=== PATIENT | female | born 1935 | race Hispanic/Latino ===

== ENCOUNTER 2017-08-20 07:37 | Emergency (ER) | payer MEDICARE ==
[2017-08-20 08:56] LABS: #Lymphocytes 0.9 thou/uL (1.20-3.40); #Monocytes 0.6 thou/uL (0.11-0.59); #Neutrophils 10.3 thou/uL (1.40-6.50); %Basophils 0.2 % (0.0-1.0); %Eosinophils 0.3 % (0.0-10.0); %Lymphocytes 7.5 % (21.0-51.0); %Monocytes 4.9 % (0.0-10.0); %Neutrophils 87.1 % (42.0-75.0); Hemoglobin 10.2 g/dL (12.0-16.0); Mean Corpuscular HGB CONC 32.9 g/dL (32.0-36.0); Mean Corpuscular Hemoglobin 31.3 pg (27.0-31.0); Mean Corpuscular Volume 95.3 fl (81.0-99.0); Mean Platelet Volume 7.1 fL (7.4-10.4); Platelet Count 464 thou/uL (130-400); Red Blood Cell (RBC) Count 3.24 mill/uL (4.20-5.40); White Blood Cell (WBC) Count 11.9 thou/uL (4.8-10.8)
[2017-08-20 09:14] LABS: Anion Gap 12 mmol/L (10-20); BUN (Urea Nitrogen) 21 mg/dL (9.8-20.1); Calc. Creatinine Clearance 0 mL/min (70-130); Calcium 9.3 mg/dL (7.8-10.44); Carbon Dioxide 24 mmol/L (23-31); Chloride 101 mmol/L (98-107); Estimated GFR-MDRD 56; Glucose 225 mg/dL (83-110); Potassium 4.3 mmol/L (3.5-5.1); Sodium 133 mmol/L (136-145)
--- NOTE | 2017-08-20 09:19 | RAD ---
CHEST 1 VIEW: HISTORY: Cough. FINDINGS: Cardiac silhouette is magnified by projection and upper limits of normal. Pulmonary vasculature is u nremarkable. Mediastinum is midline with aortic calcification. There is no lobar consolidation or e vidence of pneumothorax. IMPRESSION: Borderline cardiomegaly and pulmonary vascular congestion. No florid edema is evident. POS: [facility]
[2017-08-20 09:20] LABS: Troponin I Less than 0.010 ng/mL (< 0.028)
[2017-08-20 09:34] LABS: Bilirubin Negative (Negative); Blood, Urine Negative (Negative); Clarity CLEAR (Clear); Glucose, Urine (Dipstick) 250 mg/dL (Negative); Leukocyte Trace (Negative); Nitrite Negative (Negative); Protein, Urine (Dipstick) Negative (Neg-Trace); Specific Gravity, Urine 1.021 (1.002-1.036)
[2017-08-20 09:37] LABS: Bacteria/HPF None Seen HPF (None Seen); Hyaline Casts/LPF 0-3 HYALINE CAST LPF (0-3 Hyaline); Pathc Cast-AUWi Flag 0.27 (0-2.49); RBC/HPF 0-3 HPF (0-3); Squamous Epithelial 0-3 HPF (0-3); WBC/HPF 0-3 HPF (0-3)
[2017-08-20] MEDS ORDERED: Methocarbamol 1 GM in Sodium Chloride 0.9% 100 ML IVPB SCH (09:45)
== END 2017-08-20 12:15 | disposition home or self-care (01) ==
LOC: ERS 07:37
DX: M54.2 Cervicalgia (principal); E11.9 Type 2 diabetes mellitus without complications; E78.5 Hyperlipidemia, unspecified; M19.90 Unspecified osteoarthritis, unspecified site
CPT/HCPCS: 36415; 71045; 80048; 81003; 81015; 82553; 84484; 85025; 87086; 93005; 96365; J2800; J7050

== ENCOUNTER 2018-06-30 08:18 | Outpatient (CLI) | payer MEDICARE | END 2018-06-30 08:19 | disposition home or self-care (01) | LOC: BICMAMMO 08:18 | PROVIDERS: ATTEND Internal Medicine | DX: Z12.31 Encounter for screening mammogram for malignant neoplasm of breast (principal); R92.1 Mammographic calcification found on diagnostic imaging of breast | CPT/HCPCS: 77063; 77067 ==

== ENCOUNTER 2019-02-07 15:08 | Outpatient (CLI) | payer MEDICARE ==
--- NOTE | 2019-02-07 16:39 | BD ---
Exam: DEXA Bone Density 02/07/19 COMPARISON: 07/10/07. HISTORY: 83-year-old postmenopausal female for screening. FINDINGS: Lumbar Spine: BMD (g/cm2) T-SCORE L1 1.114 1.1 L2 1.050 0.2 L3 1.076 -0.1 L4 1.063 0.0 L1-L4 1.078 0.3 Left Femoral Neck: 0.469 -3.4 Total Proximal Femur: 0.783 -1.3 Impression: Osteoporosis. POS: [facility]
== END 2019-02-07 15:09 | disposition home or self-care (01) ==
LOC: BICMAMMO 15:08
PROVIDERS: ATTEND Internal Medicine Rheumatology
DX: M81.0 Age-related osteoporosis without current pathological fracture (principal)
CPT/HCPCS: 77080

== ENCOUNTER 2019-07-10 11:25 | Outpatient (CLI) | payer MEDICARE ==
--- NOTE | 2019-07-10 13:07 | MMO ---
Bilateral MAMMO Bilat Screen [facility]. CLINICAL HISTORY: Patient is 83 years old and is seen for screening. The patient has no family history of breast cancer. The patient has no personal history of cancer. VIEWS: The views performed were: bilateral craniocaudal; bilateral craniocaudal with tomosynthesis; and bilateral mediolateral oblique with tomosynthesis. FILMS COMPARED: The present examination has been compared to prior imaging studies performed at [facility] on 06/12/2015, 06/17/2016, 06/28/2017 and 06/30/2018. This study has been interpreted with the assistance of computer-aided detection. MAMMOGRAM FINDINGS: There are scattered fibroglandular densities. There are stable benign appearing calcifications seen in both breasts. There are also vascular calcifications. There are no suspicious masses, suspicious calcifications, or new areas of architectural distortion. IMPRESSION: THERE IS NO MAMMOGRAPHIC EVIDENCE OF MALIGNANCY. A ROUTINE FOLLOW-UP MAMMOGRAM IN 1 YEAR IS RECOMMENDED. THE RESULTS OF THIS EXAM WERE SENT TO THE PATIENT. ACR BI-RADS Category 2 - Benign finding MAMMOGRAPHY NOTE: 1. A negative mammogram report should not delay a biopsy if a dominant of clinically suspicious mass is present. 2. Approximately 10% to 15% of breast cancers are not detected by mammography. 3. Adenosis and dense breasts may obscure an underlying neoplasm. Reported by: CHRISTI YEN MD Electonically Signed: [id number]
== END 2019-07-10 11:26 | disposition home or self-care (01) ==
LOC: BICMAMMO 11:25
PROVIDERS: ATTEND Internal Medicine
DX: Z12.31 Encounter for screening mammogram for malignant neoplasm of breast (principal)
CPT/HCPCS: 77063; 77067

== ENCOUNTER 2020-04-07 01:35 | Emergency (ER) | payer MEDICARE, OTHER ==
[2020-04-07 11:43] LABS: SARS-CoV-2 MS2 Positive; SARS-CoV-2 N Gene Negative; SARS-CoV-2 S Gene Negative; SARS-CoV-2 by NAA Not Detected (NotDetected); SARS-CoV-2 orf1ab Negative
== END 2020-04-07 02:44 | disposition home or self-care (01) ==
LOC: ERS 01:35
DX: R05 Cough (principal); Z20.828 Contact with and (suspected) exposure to other viral communicable diseases; E11.9 Type 2 diabetes mellitus without complications; E78.5 Hyperlipidemia, unspecified; E78.00 Pure hypercholesterolemia, unspecified; Z79.899 Other long term (current) drug therapy; Z79.84 Long term (current) use of oral hypoglycemic drugs
CPT/HCPCS: 99283; U0003; 87635

== ENCOUNTER 2020-04-30 19:49 | Emergency (ER) | payer MEDICARE ==
[2020-04-30] MEDS ORDERED: Dexamethasone 10 MG/ML VIAL ONE (20:41)
[2020-04-30 20:54] LABS: #Basophils 0.1 thou/uL (0.0-0.2); #Eosinphils 0.3 thou/uL (0.0-0.7); #Lymphocytes 0.5 thou/uL (1.20-3.40); #Monocytes 0.5 thou/uL (0.11-0.59); #Neutrophils 7.6 thou/uL (1.40-6.50); %Basophils 0.6 % (0.0-1.0); %Eosinophils 2.9 % (0.0-10.0); %Lymphocytes 5.6 % (21.0-51.0); %Monocytes 5.4 % (0.0-10.0); %Neutrophils 85.5 % (42.0-75.0); Hemoglobin 11.3 g/dL (12.0-16.0); Mean Corpuscular HGB CONC 33.3 g/dL (32.0-36.0); Mean Corpuscular Volume 96.3 fL (78.0-98.0); Mean Platelet Volume 7.4 fL (7.4-10.4); Platelet Count 440 thou/uL (130-400); RBC Distribution Width 12.8 % (11.5-14.5); Red Blood Cell (RBC) Count 3.51 mill/uL (4.20-5.40); White Blood Cell (WBC) Count 8.9 thou/uL (4.8-10.8)
[2020-04-30 21:14] LABS: ALT (SGPT) 15 U/L (8-55); AST (SGOT) 23 U/L (5-34); Albumin 3.8 g/dL (3.4-4.8); Alkaline Phosphatase 27 U/L (40-110); Anion Gap 15 mmol/L (10-20); BUN (Urea Nitrogen) 26 mg/dL (9.8-20.1); Bilirubin, Total 0.3 mg/dL (0.2-1.2); Calc. Creatinine Clearance 0 mL/min (70-130); Calcium 9.2 mg/dL (7.8-10.44); Carbon Dioxide 18 mmol/L (23-31); Chloride 107 mmol/L (98-107); Estimated GFR-MDRD 32; Globulin 3.6 g/dL (2.4-3.5); Glucose 158 mg/dL (83-110); Potassium 5.3 mmol/L (3.5-5.1); Protein, Total 7.4 g/dL (6.0-8.3); Sodium 135 mmol/L (136-145)
[2020-04-30] MEDS ORDERED: metroNIDAZOLE 500 MG/100 ML BAG ONE (21:39)
[2020-04-30] MEDS ORDERED: Ciprofloxacin 500 MG TAB ONE (21:39)
[2020-04-30] MEDS ORDERED: metroNIDAZOLE 250 MG TAB ONE (21:45)
== END 2020-04-30 22:17 | disposition home or self-care (01) ==
LOC: ERS 19:49
DX: E86.0 Dehydration (principal); R19.7 Diarrhea, unspecified; L03.116 Cellulitis of left lower limb; E11.9 Type 2 diabetes mellitus without complications; E78.5 Hyperlipidemia, unspecified; E78.00 Pure hypercholesterolemia, unspecified; M19.90 Unspecified osteoarthritis, unspecified site; Z79.84 Long term (current) use of oral hypoglycemic drugs; Z79.899 Other long term (current) drug therapy
CPT/HCPCS: 80053; 85025; 96361; 96374; J1100

== ENCOUNTER 2020-05-14 13:01 | Inpatient (IN) | payer MEDICARE, OTHER ==
[2020-05-14 14:48] LABS: #Basophils 0.1 thou/uL (0.0-0.2); #Eosinphils 0.2 thou/uL (0.0-0.7); #Lymphocytes 1.6 thou/uL (1.20-3.40); #Monocytes 0.5 thou/uL (0.11-0.59); #Neutrophils 7.5 thou/uL (1.40-6.50); %Basophils 0.5 % (0.0-1.0); %Eosinophils 1.7 % (0.0-10.0); %Monocytes 4.8 % (0.0-10.0); Hemoglobin 9.6 g/dL (12.0-16.0); Mean Corpuscular HGB CONC 32.8 g/dL (32.0-36.0); Mean Corpuscular Volume 97.6 fL (78.0-98.0); Mean Platelet Volume 7.1 fL (7.4-10.4); Platelet Count 555 thou/uL (130-400); RBC Distribution Width 12.5 % (11.5-14.5); Red Blood Cell (RBC) Count 2.99 mill/uL (4.20-5.40); White Blood Cell (WBC) Count 9.7 thou/uL (4.8-10.8)
[2020-05-14 15:12] LABS: ALT (SGPT) 9 U/L (8-55); AST (SGOT) 20 U/L (5-34); Albumin 3.2 g/dL (3.4-4.8); Alkaline Phosphatase 27 U/L (40-110); Anion Gap 14 mmol/L (10-20); BUN (Urea Nitrogen) 45 mg/dL (9.8-20.1); Bilirubin, Total 0.3 mg/dL (0.2-1.2); Calc. Creatinine Clearance 0 mL/min (70-130); Calcium 7.7 mg/dL (7.8-10.44); Carbon Dioxide 16 mmol/L (23-31); Chloride 112 mmol/L (98-107); Estimated GFR-MDRD 17; Globulin 3.7 g/dL (2.4-3.5); Glucose 112 mg/dL (83-110); Magnesium 1.6 mg/dL (1.6-2.6); Potassium 4.6 mmol/L (3.5-5.1); Protein, Total 6.9 g/dL (6.0-8.3); Sodium 137 mmol/L (136-145)
[2020-05-14 15:30] LABS: Bilirubin Negative (Negative); Blood, Urine Negative (Negative); Clarity Clear (Clear); Glucose, Urine (Dipstick) 70 mg/dL (Negative); Ketone, Urine Negative (Negative); Leukocyte 250 Leu/uL (Negative); Nitrite Negative (Negative); Protein, Urine (Dipstick) 20 mg/dL (Neg-Trace); RBC/HPF 0-3 HPF (0-3); Specific Gravity, Urine 1.014 (1.002-1.036); Urobilinogen Normal mg/dL (Less than 2)
[2020-05-14 15:32] LABS: Bacteria/HPF 1+ HPF (None Seen)
--- NOTE | 2020-05-14 15:47 | PDOC.HHP ---
Hospitalist HPI - History of Present Illness Worsening renal function History of Present Illness: This is an 84-year-old female with a history of diabetes mellitus was transferred here by her PCP on account of worsening renal function. Patient notes she had followed up with a PCP for routine visit and labs were done. She was called later and informed that she has come to the ED for further evaluation due to poor renal function. She is generally asymptomatic. She notes for the past couple of months having had some abdominal bloating on account of eating some foods. She also notes having been on some probiotics which have been causing her to have diarrhea for the past couple of weeks. She had 1 tablet this morning with 1 big bowel movement prior to visiting the clinic. She does not know the name of the medication. She has also had a long history of polyuria which has been attributed to her diabetes. She does not take NSAIDs. She takes Tylenol for headache. She also has ongoing nocturia. She denies any fever, chills, cough chest pain or shortness of breath. At presentation her vitals were BP 122/70, pulse 90/min, respiration 19, temperature 97 saturation 99 on room air. Labs showed UA with leukocytes to 50, WBC 7-10, low nitrite. Creatinine was elevated at 2.72 from a baseline of 1.54 on 04/30/2020a month ago. She had a mild anemia of 9.6 from a baseline of 11.3 months ago. Nephrology was consulted on account of worsening renal function Hospitalist team consulted for admission. Hospitalist ROS - Review of Systems Constitutional: denies: fever, chills, sweats Respiratory: denies: cough, shortness of breath, hemoptysis, SOB with excertion Cardiovascular: denies: chest pain, palpitations, orthopnea, paroxysmal noc. dyspnea Gastrointestinal: reports: other. denies: nausea, vomiting, abdominal pain Genitourinary: denies: dysuria, frequency (Abdominal discomfort with some foods), incontinence Musculoskeletal: denies: neck pain Neurological: denies: weakness, numbness, incoordination - Medication Medications: Glyburide 5 mg p.o. 3 times daily Raloxifene 60 mg a Lisinopril 5 mg daily Metformin thousand milligrams twice daily Pravastatin 40 mg daily Tramadol 25 mg twice daily Fenofibrate 145 p.o. every afternoon Aspirin 325 twice daily Humalog 2 units moderate sliding scale Tramadol thousand milligrams every 6 as needed Drug allergies: Ceftriaxone Hospitalist History - Past Medical History Endocrine: reports: Diabetes - Past Surgical History Past Surgical History: reports: Total Knee Replacement - Family History Other Family History: Diabetes mellitus - Social History Smoking Status: Never smoker Alcohol: reports: None Drugs: reports: none - Exam General Appearance: awake alert General - other findings: No acute distress. Eye: PERRL, anicteric sclera Heart: RRR, no murmur, no gallops, normal peripheral pulses Respiratory: no wheezes, no rales, no ronchi, no tachypnea Gastrointestinal: soft, non-tender, non-distended, normal bowel sounds, no palpable masses Extremities: no cyanosis Neurological: cranial nerve grossly intact, no weakness Psychiatric: normal behavior, A&O x 3 Hospitalist Results - Labs Result Diagrams: 05/14/20 14:37 05/14/20 14:37 Lab results: WBC 9.7 thou/uL (4.8-10.8) 05/14/20 14:37 Hgb 9.6 g/dL (12.0-16.0) L 05/14/20 14:37 Hct 29.2 % (36.0-47.0) L 05/14/20 14:37 MCV 97.6 fL (78.0-98.0) 05/14/20 14:37 Plt Count 555 thou/uL (130-400) H 05/14/20 14:37 Neutrophils % 77.0 % (42.0-75.0) H 05/14/20 14:37 Sodium 137 mmol/L (136-145) 05/14/20 14:37 Potassium 4.6 mmol/L (3.5-5.1) 05/14/20 14:37 Chloride 112 mmol/L (98-107) H 05/14/20 14:37 Carbon Dioxide 16 mmol/L (23-31) L 05/14/20 14:37 BUN 45 mg/dL (9.8-20.1) H 05/14/20 14:37 Creatinine 2.72 mg/dL (0.6-1.1) H 05/14/20 14:37 Glucose 112 mg/dL (83-110) H 05/14/20 14:37 Calcium 7.7 mg/dL (7.8-10.44) L 05/14/20 14:37 Total Bilirubin 0.3 mg/dL (0.2-1.2) 05/14/20 14:37 AST 20 U/L (5-34) 05/14/20 14:37 ALT 9 U/L (8-55) 05/14/20 14:37 Alkaline Phosphatase 27 U/L (40-110) L 05/14/20 14:37 Serum Total Protein 6.9 g/dL (6.0-8.3) 05/14/20 14:37 Albumin 3.2 g/dL (3.4-4.8) L 05/14/20 14:37 Urine Ketones Negative mg/dL (Negative) 05/14/20 15:11 Urine Blood Negative (Negative) 05/14/20 15:11 Urine Nitrite Negative (Negative) 05/14/20 15:11 Ur Leukocyte Esterase 250 Fili/uL (Negative) A 05/14/20 15:11 Urine RBC 0-3 HPF (0-3) 05/14/20 15:11 Urine WBC 7-10 HPF (0-3) A 05/14/20 15:11 Ur Squamous Epith Cells 4-6 HPF (0-3) A 05/14/20 15:11 Urine Bacteria 1+ HPF (None Seen) A 05/14/20 15:11 Hospitalist H&P A/P - Plan Plan: 84-year-old female with diabetes mellitus transferred on account of worsening r enal function. ARACELI on CKD Creatinine bumped from 1.5-2.7 today. Unclear etiologypossibly prerenal, to rule out renal disease BUN is 45BUN/creatinine ratio is on 20 Will give IV fluid bolus to assess for prerenal failure. Start antibiotics for potential UTI. Kidney ultrasound Possible UTI Started levofloxacinwe will continue Allergy to ceftriaxone Follow-up cultures Normocytic anemia Likely secondary to CKD Iron studies ordered. Monitor hemoglobin Diabetes mellitus Sliding scale Monitor glucose Hypertension Hold lisinopril Monitor blood pressure
[2020-05-14] MEDS ORDERED: Acetaminophen 325 MG TAB PO PRN (16:43)
[2020-05-14] MEDS ORDERED: Dextrose 5% in Water 1,000 ML IV PRN (16:47)
[2020-05-14] MEDS ORDERED: Dextrose 50% Abboject 50 ML SYRINGE SLOW IVP PRN (16:47)
[2020-05-14] MEDS ORDERED: Sodium Chloride 0.9% 500 ML IV SCH (17:00)
[2020-05-14 17:54] LABS: Iron 71 ug/dL (50-170); Iron Binding Capacity, Total 330 mcg/dL (265-497)
[2020-05-14] MEDS ORDERED: Sodium Bicarbonate 150 MEQ in Dextrose 5% in Water 1,000 ML IV SCH (18:45)
[2020-05-14 19:12] LABS: Creatinine, Urine 93.63 mg/dL (47-110)
[2020-05-14 19:48] VITALS: BMI 28.3
[2020-05-14] MEDS ORDERED: Amlodipine 5 MG TAB PO SCH (20:15)
[2020-05-14] MEDS: HumaLOG 300 UNITS/3 ML VIAL SC PRN (21:51)
--- NOTE | 2020-05-14 22:48 | CON ---
DATE OF CONSULTATION: 05/14/2020 SERVICE: Nephrology. REASON FOR CONSULTATION: Elevated creatinine. REQUESTING PHYSICIAN: Heri Sumner MD. HISTORY OF PRESENT ILLNESS: An 84-year-old female with past medical history significant for hypertension and diabetes who was referred to the hospital by PCP due to increasing creatinine levels. The patient reported abdominal bloating, but denied overt discomfort, nausea, vomiting, chest pain, shortness of breath, leg swelling, change in bowel habit, fever, or chills. The patient also denied NSAID use. Of note, the patient had creatinine of 1.54 on April 30, 2020, and on repeat earlier today it was found to be 2.89 at the PCP's office, hence referred to the emergency room for further evaluation and treatment. The patient had creatinine of 0.96 in 2018 and that seems to be her baseline. PAST MEDICAL HISTORY: 1. Hypertension. 2. Diabetes mellitus. 3. Hyperlipidemia. PAST SURGICAL HISTORY: Total knee replacement. FAMILY HISTORY: Significant for diabetes mellitus. SOCIAL HISTORY: The patient is a never smoker. Denied alcohol or recreational drug use. Lives with . ALLERGIES: REPORTED ALLERGIC REACTION TO CEFTRIAXONE. MEDICATIONS: Prior to hospital medications: 1. Glyburide 5 mg b.i.d. with meals. 2. Lisinopril 5 mg p.o. daily. 3. Metformin 1000 mg p.o. b.i.d. 4. Pravastatin 40 mg p.o. daily at bedtime. 5. Tricor 145 mg p.o. daily. 6. Vitamin D 5000 units daily. 7. Aspirin 325 mg p.o. daily. 8. Tramadol p.r.n. 9. Sliding scale insulin. REVIEW OF SYSTEMS: A 12-point review of system performed was negative other than pertinent positives and negatives included in the history of present illness. PHYSICAL EXAMINATION: VITAL SIGNS: Temperature 97.6, pulse 85, respiratory rate 16, SpO2 of 98% on room air, blood pressure is 163/76. GENERAL: Elderly female, in no obvious distress. Afebrile. Anicteric. Acyanotic. HEENT: Normocephalic, atraumatic. Oral mucosa is moist. NECK: Supple with no JVD. CARDIOVASCULAR: Regular rhythm and rate with normal. heart sounds 1 and 2. RESPIRATORY: Good air entry bilaterally with no obvious crackle or rhonchi or use of accessory muscles. GI: Full, soft, nontender, nondistended with normal bowel sounds. EXTREMITIES: Grossly normal looking, atraumatic with no edema or erythema. DUPLIGRAPH OPERATOR: Conscious, alert, oriented x3 with appropriate mental status. Cranial nerves 2 through 12 are grossly intact. DIAGNOSTIC DATA: CBC today showed WBC count of 9.7, hemoglobin of 9.6, MCV of 97.6, platelet of 555. Chemistry showed sodium 137, potassium 4.6, chloride 112, CO2 of 16, BUN 45, creatinine 2.72, glucose 112, calcium 7.7, magnesium 1.6, total bilirubin 0.3, AST 20, ALT 9, alkaline phosphatase 27, total protein 6.9, albumin 3.2. ASSESSMENT: 1. Acute kidney injury; etiology is unclear. Prerenal etiology is a possibility. Progression of chronic kidney disease is another differential, but acute worsening in few days seems acute pathology. The patient denied NSAID use. She however reported use of some probiotic, which causes some frequent loose stool, but has not used the probiotics recently. 2. Metabolic acidosis. 3. Chronic kidney disease with baseline creatinine around 1. 4. Hypocalcemia. PLAN: 1. We will get urinalysis and urine electrolytes. 2. We will also get a vitamin D level. 3. We will hold lisinopril for now. 4. We will start amlodipine for BP control. 5. We will also get renal ultrasound. 6. Avoid nephrotoxic agent. 7. We will also start the patient on sodium bicarbonate infusion. 8. Further treatment to follow depending on hospital course and review of other diagnostic test. 9. Many thanks for involving us in the care of this patient. We will follow along with you. Job ID: [id number]
[2020-05-15 06:22] LABS: #Basophils 0.1 thou/uL (0.0-0.2); #Eosinphils 0.2 thou/uL (0.0-0.7); #Lymphocytes 1.3 thou/uL (1.20-3.40); #Monocytes 0.4 thou/uL (0.11-0.59); #Neutrophils 6.3 thou/uL (1.40-6.50); %Eosinophils 2.3 % (0.0-10.0); %Monocytes 5.1 % (0.0-10.0); %Neutrophils 75.6 % (42.0-75.0); Hemoglobin 8.9 g/dL (12.0-16.0); Mean Corpuscular HGB CONC 33.8 g/dL (32.0-36.0); Mean Corpuscular Hemoglobin 32.4 pg (27.0-31.0); Mean Corpuscular Volume 95.9 fL (78.0-98.0); Mean Platelet Volume 7.1 fL (7.4-10.4); Platelet Count 515 thou/uL (130-400); RBC Distribution Width 12.6 % (11.5-14.5); Red Blood Cell (RBC) Count 2.76 mill/uL (4.20-5.40); White Blood Cell (WBC) Count 8.4 thou/uL (4.8-10.8)
[2020-05-15 06:45] LABS: Anion Gap 10 mmol/L (10-20); BUN (Urea Nitrogen) 41 mg/dL (9.8-20.1); Calc. Creatinine Clearance 17 mL/min (70-130); Calcium 7.2 mg/dL (7.8-10.44); Carbon Dioxide 21 mmol/L (23-31); Chloride 109 mmol/L (98-107); Estimated GFR-MDRD 18; Glucose 106 mg/dL (83-110); Potassium 4.4 mmol/L (3.5-5.1); Sodium 136 mmol/L (136-145)
--- NOTE | 2020-05-15 07:50 | ULT ---
Exam: Bilateral renal ultrasound HISTORY: Acute kidney insufficiency COMPARISON: None FINDINGS: Right kidney: Normal cortical echotexture. No hydronephrosis. Right kidney measurements: 5.0 x 11.8 x 4.4 cm. Left kidney: Normal cortical echotexture. No hydronephrosis. 1.0 x 1.0 x 0.9 cm anechoic focus likely representing a intraparenchymal cyst. Left kidney measurements 11.4 x 5.0 x 4.7 cm. Urinary bladder: Normal mucosa. Right ureteral jet is appreciated. Left ureteral jet is not identifie d. Bladder volume is 108 mL. IMPRESSION: No hydronephrosis.
[2020-05-15] MEDS ORDERED: Ergocalciferol 1.25 MG(50,000 UNITS) CAP PO SCH (09:00)
[2020-05-15] MEDS: Calcium Carbonate 500 MG ChewTAB PO SCH ×2 (09:02→21:05)
[2020-05-15 12:50] LABS: SARS-CoV-2 MS2 Positive; SARS-CoV-2 N Gene Negative; SARS-CoV-2 S Gene Negative; SARS-CoV-2 by NAA Not Detected (NotDetected); SARS-CoV-2 orf1ab Negative
[2020-05-15] MEDS: Sodium Bicarbonate 150 MEQ in Dextrose 5% in Water 1,000 ML IV SCH (13:40)
[2020-05-15] MEDS: HumaLOG 300 UNITS/3 ML VIAL SC PRN (16:53)
--- NOTE | 2020-05-15 17:21 | PRG ---
DATE OF SERVICE: 05/15/2020 SERVICE: Nephrology. SUBJECTIVE: An 84-year-old female with hypertension and diabetes, seen in followup for acute elevation in creatinine. No new problem. Denied abdominal pain, chest pain, nausea, or vomiting. Complains of insomnia. OBJECTIVE: VITAL SIGNS: Temperature 98.1, pulse 81, respiratory rate 16, SpO2 of 98% on room air, blood pressure is 137/73. GENERAL: Comfortable elderly female, in no distress. Afebrile. Anicteric. Acyanotic. HEENT: Normocephalic, atraumatic. Oral mucosa is moist. NECK: Supple with no JVD. CARDIOVASCULAR: Regular rhythm and rate with normal heart sounds 1 and 2. RESPIRATORY: Good air entry bilaterally with no obvious crackle or rhonchi or use of accessory muscles. GI: Full, soft, nontender, nondistended with normal bowel sounds. EXTREMITIES: Grossly normal looking, atraumatic, with no edema or erythema. MACHINE OPERATOR PICKER: Conscious, alert, oriented x3 with appropriate mental status. Cranial nerves 2 through 12 are grossly intact. DIAGNOSTIC DATA: CBC today showed WBC count of 8.4, hemoglobin of 8.9, MCV of 95.9, platelet of 515. Chemistry today showed sodium 136, potassium 4.4, chloride 109, CO2 of 21, BUN 41, creatinine 2.58, calcium 7.2, glucose 106. Of note, creatinine went down from 2.72 on admission to 2.58. Urinalysis showed light yellow clear urine with pH of 5.0; specific gravity of 1.014; urine protein positive; negative ketone, blood, nitrite, bilirubin, and urobilinogen. Leukocyte esterase is positive. Microscopy showed 0 to 3 rbc's and 7 to 10 wbc's with 1+ bacteria. Urine protein 90 mg/dL. Urine uric acid 35.2. Fractional excretion of sodium is 0.9% with urine creatinine of 93.63, urine sodium 45, urine urea nitrogen 461. Renal ultrasound showed normal kidneys in both size and echotexture with no hydronephrosis. 1 x 1 x 0.9 anechoic focus likely representing an intraparenchymal cyst is noted on the left kidney. ASSESSMENT: 1. Acute kidney injury: Most likely due to hemodynamic factors related to volume depletion and use of RAAS jose rafael. 2. Metabolic acidosis. 3. Hypocalcemia. 4. Vitamin D deficiency. PLAN: 1. Continue sodium bicarbonate infusion. 2. We will also start vitamin D and calcium supplementation. 3. We will recheck renal function test in the morning. 4. Further treatment to follow depending on hospital course. 5. Continue to hold losartan while continuing low-dose amlodipine for adequate BP control. We defer diabetic management to the primary attending. Job ID: [id number]
[2020-05-16] MEDS: Sodium Bicarbonate 150 MEQ in Dextrose 5% in Water 1,000 ML IV SCH (00:15)
[2020-05-16 07:40] VITALS: TEMP 98.4
[2020-05-16] MEDS: Calcium Carbonate 500 MG ChewTAB PO SCH (08:30)
[2020-05-16 08:49] LABS: Albumin 3.3 g/dL (3.4-4.8); Anion Gap 15 mmol/L (10-20); BUN (Urea Nitrogen) 34 mg/dL (9.8-20.1); BUN/Creatinine Ratio 12.01; Calc. Creatinine Clearance 16 mL/min (70-130); Calcium 7.7 mg/dL (7.8-10.44); Carbon Dioxide 27 mmol/L (23-31); Chloride 99 mmol/L (98-107); Estimated GFR-MDRD 16; Glucose 293 mg/dL (83-110); Phosphorus 2.4 mg/dL (2.3-4.7); Sodium 137 mmol/L (136-145)
[2020-05-16] MEDS ORDERED: Insulin Glargine 6 UNITS in Pre-Filled Syringe 1 EACH SC SCH (09:00)
[2020-05-16 15:10] LABS: Anion Gap 15 mmol/L (10-20); BUN (Urea Nitrogen) 34 mg/dL (9.8-20.1); CRP (Inflammatory) 1.55 mg/dL (= or < 0.5); Calc. Creatinine Clearance 16 mL/min (70-130); Calcium 7.9 mg/dL (7.8-10.44); Carbon Dioxide 25 mmol/L (23-31); Chloride 100 mmol/L (98-107); Estimated GFR-MDRD 16; Glucose 232 mg/dL (83-110); Potassium 4.4 mmol/L (3.5-5.1); Sodium 136 mmol/L (136-145)
[2020-05-16 15:13] LABS: Complement-C4 29.4 mg/dL (Not Available)
[2020-05-16 15:47] VITALS: BP 123/69
[2020-05-16] MEDS: HumaLOG 300 UNITS/3 ML VIAL SC PRN (15:58)
--- NOTE | 2020-05-16 15:59 | PRG ---
DATE OF SERVICE: 05/16/2020 SERVICE: Nephrology. SUBJECTIVE: An 84-year-old female with hypertension and diabetes, admitted due to acute elevation in creatinine. No new problem. Denied nausea, vomiting, or change in bowel habit. Also denied abdominal pain or fever. OBJECTIVE: VITAL SIGNS: Temperature 98.4, pulse 84, respiratory rate 19, SpO2 of 97% on room air, blood pressure 137/78. I and O in the last 24 hours showed total intake of 2366, output was not recorded. GENERAL: Elderly female, in no obvious distress. Afebrile. Anicteric. Acyanotic. HEENT: Normocephalic and atraumatic. Oral mucosa is moist. NECK: Supple with no JVD. CARDIOVASCULAR: Regular rhythm and rate with normal heart sounds one and two. RESPIRATORY: Fair air entry bilaterally. Few transmitted breath sounds. No obvious crackle or rhonchi or use of accessory muscles. GI: Obese, soft, nontender, nondistended with normal bowel sounds. EXTREMITIES: Trace pretibial edema noted bilaterally. SYSTEMS TRAINER: Conscious, alert, oriented x3 with appropriate mental status. Cranial nerves 2 through 12 are grossly intact. LABORATORY DATA: Chemistry showed sodium 137, potassium 4.0, chloride 99, CO2 of 27, BUN 34, creatinine 2.83, glucose 293, calcium 7.7, phosphorus 2.4, albumin 3.3. ASSESSMENT: 1. Acute kidney injury: Etiology is unclear. It was initially thought to be due to hemodynamic, but despite volume expansion, there is no significant change. Creatinine went down to 2.58 yesterday, but despite IV fluid, it is up to 2.83 today. Review of medical records showed that the patient had creatinine of 1.54 on April 30, 2020. 2. Metabolic acidosis: Due to acute kidney injury on chronic kidney disease. Improved with bicarb infusion. 3. Hypocalcemia: Due to vitamin D deficiency. 4. Pyuria: The patient was started on antibiotics for possible urinary tract infection, but urine culture was negative. The patient also denied dysuria. Interstitial nephritis or some form of nephritis is likely. 5. Hypertension: Control is acceptable. Lisinopril was discontinued and amlodipine low dose started in its place. PLAN: 1. We will get repeat confirm results. We will also get a CRP, ESR, and complement as well as MILTON with reflex. 2. If repeat renal function test is still consistent, we will discontinue IV fluid. Further treatment to follow depending on other diagnostic test. Job ID: [id number]
[2020-05-16] MEDS ORDERED: Atorvastatin Calcium 10 MG TAB PO SCH (21:00)
--- NOTE | 2020-05-17 14:21 | EKG ---
Test Reason : Blood Pressure : / mmHG Vent. Rate : 077 BPM Atrial Rate : 077 BPM P-R Int : 150 ms QRS Dur : 072 ms QT Int : 376 ms P-R-T Axes : 041 -17 006 degrees QTc Int : 425 ms Normal sinus rhythm Minimal voltage criteria for LVH, may be normal variant Borderline ECG Confirmed by KALYAN ROBLES ([id number]), art editor TASHA PIERRE ([id number]) on 05/17/2020 2:20:55 PM Referred By: Confirmed By:KALYAN King
[2020-05-18 16:39] LABS: ANA Symphony (Qualitative) Negative (Negative); ANA Symphony (Quantitative) 0.6 Ratio (< 0.7 Negative); dsDNA IgG Antibody 0.9 IU/mL (<10 Negative)
== END 2020-05-16 17:57 | disposition home or self-care (01) | DRG 683 ==
LOC: ERS 13:01 → T4-B 18:51 → OBSVTOIN 05-16 15:07
PROVIDERS: ADMIT Student in an Organized Health Care Education/Training Program; ATTEND Student in an Organized Health Care Education/Training Program
DX: N17.9 Acute kidney failure, unspecified (principal); E87.2 Acidosis; E11.22 Type 2 diabetes mellitus with diabetic chronic kidney disease; Z20.828 Contact with and (suspected) exposure to other viral communicable diseases; D63.1 Anemia in chronic kidney disease; N18.9 Chronic kidney disease, unspecified; E78.5 Hyperlipidemia, unspecified; E86.9 Volume depletion, unspecified; E83.51 Hypocalcemia; R82.81 Pyuria; I12.9 Hypertensive chronic kidney disease with stage 1 through stage 4 chronic kidney disease, or unspecified chronic kidney disease; Z96.659 Presence of unspecified artificial knee joint; Z79.4 Long term (current) use of insulin; Z79.82 Long term (current) use of aspirin
CPT/HCPCS: 36415; 36416; 76770; 80048; 80053; 80061; 80069; 81003; 81015; 82043; 82306; 82570; 82728; 83036; 83540; 83550; 83735; 84156; 84300; 84540; 84560; 85025; 85652; 86038; 86140; 86160; 86225; 87086; 87635; 90471; 90732; 93005; 93306; G0009; J1815; J1956; J7070; U0003

== ENCOUNTER 2020-07-11 09:18 | Emergency (ER) | payer MEDICARE ==
--- NOTE | 2020-07-11 09:46 | RAD ---
XR Chest Pa Lat STANDARD HISTORY: Cough COMPARISON: 01/16/2019 FINDINGS: The heart size is normal. The aorta is tortuous. The lungs are well expanded without focal areas of consolidation, pneumothorax or pleural effusions. There are degenerative changes in the spine. IMPRESSION: No radiographic evidence of acute cardiopulmonary process.
[2020-07-11 16:46] LABS: SARS-CoV-2 MS2 Positive; SARS-CoV-2 N Gene Negative; SARS-CoV-2 S Gene Negative; SARS-CoV-2 by NAA Not Detected (NotDetected); SARS-CoV-2 orf1ab Negative
== END 2020-07-11 10:53 | disposition home or self-care (01) ==
LOC: ERS 09:18
DX: R05 Cough (principal); Z20.828 Contact with and (suspected) exposure to other viral communicable diseases; Z79.899 Other long term (current) drug therapy; E11.9 Type 2 diabetes mellitus without complications; E78.5 Hyperlipidemia, unspecified; E78.00 Pure hypercholesterolemia, unspecified
CPT/HCPCS: 71046; U0003; 87635

== ENCOUNTER 2022-02-13 07:58 | Emergency (ER) | payer MEDICARE | END 2022-02-13 09:06 | disposition home or self-care (01) | LOC: ERS 07:58 | DX: J06.9 Acute upper respiratory infection, unspecified (principal); Z20.822 Contact with and (suspected) exposure to COVID-19; E11.9 Type 2 diabetes mellitus without complications; E78.5 Hyperlipidemia, unspecified; E78.00 Pure hypercholesterolemia, unspecified; Z79.899 Other long term (current) drug therapy | CPT/HCPCS: 71045; U0003; U0005 ==